=== PATIENT | male | born 1970 | race Caucasian/White ===

== ENCOUNTER → 2017-08-26 08:24 | Outpatient (CLI) | payer OTHER, SELFPAY ==
[2017-08-26 13:00] LABS: Cholesterol 124 mg/dL (200); Glucose 73 mg/dL (74-106); High Density Lipoprotein 40 mg/dL; Triglycerides 102 mg/dL; Very Low Density Lipoprotein 20 mg/dL (5-40)
[2017-08-29 14:08] LABS: Testosterone, Free 8.45 ng/dL (5.00-21.00)
[2017-08-29 14:13] LABS: Testosterone, % Free 1.76 % (1.50-4.20); Testosterone, Total 480 ng/dL (264-916)
== END ==
PROVIDERS: Family Provider Family Medicine; PCP Family Medicine; Visit Provider Family Medicine
DX: Z00.00 Encounter for general adult medical examination without abnormal findings (principal); Z13.220 Encounter for screening for lipoid disorders; R53.83 Other fatigue
CPT/HCPCS: 36415; 80061; 82947; 84402; 84403

== ENCOUNTER → 2018-01-17 11:25 | Outpatient (CLI) | payer OTHER, SELFPAY ==
[2018-01-17 13:02] LABS: Absolute Lymphocyte Count 2.43 X10^3/ul (0.83-4.51); Basophil# 0.09 X10^3/uL; Basophil% 1.1 % (0-1); Eosinophil# 0.18 X10^3/uL; Eosinophils% 2.1 % (0-5); Hematocrit 36.8 % (40-54); Hemoglobin 12.2 g/dl (13.0-16.5); Lymphocyte # 2.43 X10^3/ul (4.0); Lymphocyte % 28.9 % (19-41); Mean Corp Hgb Conc 33.2 g/gl (32-36); Mean Corpuscular Hgb 20.7 pg (27.0-32.0); Mean Corpuscular Volume 62.4 fL (80-94); Mean Platelet Vol. 10.1 fl (6.2-12.0); Monocyte# 0.68 X10^3/uL; Monocyte% 8.1 % (0-10); Neutrophil # 4.96 X10^3/uL (2.7-7.7); Neutrophil % 58.8 % (47-70); Platelet Count 306 K/mm3 (150-450); RBC Distribution Width CV 15.4 % (11.6-14.6); RBC Distribution Width SD 34.3 fl (35.1-43.9); White Blood Count 8.4 K/mm3 (4.4-11.0)
[2018-01-17 13:06] LABS: POSITIVE COUNT NO; POSITIVE DIFFERENTIAL NO; POSITIVE MORPHOLOGY NO
[2018-01-17 13:12] LABS: Anion Gap 6 (5-15); BUN 17 mg/dL (7-18); BUN/Creat Ratio 15.2 RATIO (10-20); Calcium,Total 9.1 mg/dL (8.5-10.1); Chloride 103 mmol/L (98-107); Creatinine, Serum 1.12 mg/dL (0.70-1.30); EST Glomerular Filtration Rate 74 mL/min (>60); Est Glom Filt Rate - Afr Amer 90 mL/min (>60); Glucose 108 mg/dL (74-106); Potassium 3.8 mmol/L (3.5-5.1); Sodium Level 143 mmol/L (136-145)
== END ==
PROVIDERS: Visit Provider Family Medicine
DX: R22.1 Localized swelling, mass and lump, neck (principal)
CPT/HCPCS: 36415; 80048; 85025

== ENCOUNTER → 2018-01-28 10:46 | Outpatient (CLI) | payer OTHER, SELFPAY ==
--- NOTE | 2018-01-28 10:49 | CT_ITS ---
STUDY: CT SOFT TISSUE NECK WITH CONTRAST REASON FOR EXAM: Male, 47 years old. MASS AT RIGHT JAW LINE. RADIATION DOSAGE (If Supplied By Facility): CTDIvol = ( 16.21 ) mGy, DLP = ( 506.11 ) mGycm TECHNIQUE: The patient was scanned in a multi-detector CT scanner. High resolution transaxial imaging was performed following intravenous administration of 75 ml of Isovue 300 contrast material. Sagittal and coronal images were reconstructed. Individualized dose optimization techniques were used for this CT. COMPARISON: None. FINDINGS: Normal bilateral parotid glands. Normal bilateral residency program coordinator spaces. Normal bilateral parapharyngeal spaces. Normal bilateral carotid spaces. Normal bilateral sublingual and submandibular glands and spaces. Normal visualized nasopharynx. Normal retropharyngeal space. Normal perivertebral space. Normal visualized bilateral faucial tonsils. The visualized tongue, tongue base and oropharynx are normal. There are left submandibular masses measuring up to 2.5 and 2.2 cm, likely secondary to enlarged lymph nodes. There is no demonstrated solid or cystic mass lesion. There is no abnormal contrast enhancement. Normal epiglottis, bilateral vallecula and hypopharynx. The pre-epiglottic and paraglottic adipose spaces are normal. Normal visualized bilateral piriform sinuses, aryepiglottic folds, vocal cords, and arytenoid-cricoid articulations. Normal subglottic trachea. Normal bilateral lobes of the thyroid gland. Normal visualized pulmonary apices. Normal visualized paranasal sinuses. Normal visualized cervical spine. CT/Soft Tissue Neck WITH Contrast IMPRESSION: Severe left submental lymphadenopathy. Differential considerations are infectious and neoplastic disease. Electronically Signed: Esperanza Newman MD at 11:15 EDT Tel , Service support ,
== END ==
PROVIDERS: Family Provider Family Medicine; PCP Family Medicine; Visit Provider Family Medicine
DX: R22.1 Localized swelling, mass and lump, neck (principal)
CPT/HCPCS: 70491; Q9967

== ENCOUNTER → 2018-02-04 12:36 | Outpatient (CLI) | payer OTHER, SELFPAY ==
--- NOTE | 2018-02-04 | IMM_PTH ---
PATIENT: WILLIAM WEI LOC: [facility] U#:[id number] AGE/SX: 55/M ROOM: RE02/04/[address]: Dr. Shlomo Kumar MD : 1970 BED: DIS: SPEC #: [id number] RECD: 02/05/18 13:42 STATUS: RAMBO REQ #: [id number] STEPHIE: 02/04/18 00:[address]: Shlomo Kumar DEPT: IMMUNOHISTOCHEMISTRY RECD BY: Kenia Foy ENTERED: 02/05/18 13:44 SP TYPE: IMMUNO OTHR DR: Dr. Dom Rice DO Tissues: Lymph node of neck, NOS Procedures: CD20 (add) CD45 (add) CD5 (add) CD79A (add) CK8 (add) Pankeratin (add) CD3 (initial) PHYSICIAN & INSTITUTION [place] [address] SPECIMEN INFORMATION: Tissue Source: Submental lymph node biopsy Clinical Info: Submental lymph node Specimen Number: [id number] CPT code: 23855, 56574 x6 METHODOLOGY: Deparaffinized sections of prefer/formalin-fixed tissue or PAP/DQ stained slides are incubated with monoclonal/polyclonal antibodies/oligonucleotide probes. Localization is made via biotin free immunoperoxidase method. Appropriate controls are performed and reacted as expected. Results on target cell population are indicated in the following table: RESULTS: ANTIBODY / CLONE RESULT CD3 (PS1) positive CD5 (SP10) positive, focal & weak CD20 (L26) positive CD45 (RP2/18) positive CD79a (11E3) positive CK8 (03xhloX30) negative AE1-3 (AE1/AE3/PCK26) negative These tests were developed and their performance characteristics determined by [facility]. They may not have been cleared or approved by the U.S. Food and Drug Administration. The FDA has determined that such clearance or approval is not necessary. INTERPRETATION: Submental lymph node biopsy: Lymphocytes, polytypic in nature, favor benign. Negative for metastatic carcinoma. RADHA:antonio 02/06/18
--- NOTE | 2018-02-04 10:35 | FLU_PTH ---
PATIENT: WILLIAM WEI LOC: [facility] U#:[id number] AGE/SX: 55/M ROOM: RE02/04/[address]: Dr. Shlomo Kumar MD : 1970 BED: DIS: SPEC #: [id number] RECD: 02/04/18 12:04 STATUS: RAMBO POOJA #: [id number] STEPHIE: 02/04/18 10:[address]: Shlomo Kumar DEPT: CYTOLOGY RECD BY: Luis Morales ENTERED: 02/04/18 13:50 SP TYPE: Fluid OTHR DR: Dr. Dom Rice DO Tissues: Lymph node, NOS Procedures: Pap Stain (control) Special Stain Group II Surgery Specimen Level IV Cell Block Cytospin Fluid HEADER OPERATION: FNA neck node PRE-OP DIAGNOSIS: Submental lymph node TISSUE SUBMITTED: Submental lymph node biopsy DIAGNOSIS CYTOLOGY Submental lymph node, FNA (smears, cytospin and cell block): Polymorphous lymphocytes, polytypic in nature, favor benign. Negative for metastatic carcinoma. See comment. SJ:rg 02/05/18 COMMENT Immunohistochemistry ([id number]) supports the above diagnosis. Clinical correlation and appropriate follow up are necessary, if there is high suspicion of lymphoma, rebiopsy is suggested, if clinically indicated. CYTOLOGY STUDY Slides are reviewed. CYTOLOGY GROSS Received is 40 ml of clear pink fluid labeled with the patient's name and and designated per the requisition as FNA neck note. Submitted for cytology preparation including cell block. 02/04/18 TC:5 CPT: 67424, 98208
== END ==
PROVIDERS: Family Provider Family Medicine; PCP Family Medicine; Visit Provider Otolaryngology
DX: R59.0 Localized enlarged lymph nodes (principal); Z87.891 Personal history of nicotine dependence
CPT/HCPCS: 88108; 88305; 88313; 88341; 88342

== ENCOUNTER 2020-05-27 10:03 | Day surgery (SDC) | payer OTHER, SELFPAY ==
[2020-05-04 08:45] VITALS: BMI 21.7
[2020-05-27] VITALS (7 sets, daily range): BP systolic 100–130; BP diastolic 63–75; PULSE 76–88; RESP 16; TEMP 36.4–36.8; O2SAT 97–100; BMI 20.6
--- NOTE | 2020-05-27 | GASB_PTH ---
PATIENT: WILLIAM WEI LOC: [facility] U#:[id number] AGE/SX: 50/M ROOM: RE05/27/[address]: Dr. Jake Johnson MD : 1970 BED: DIS: 05/27/2020 SPEC #: [id number] RECD: 05/27/20 14:17 STATUS: RAMBO POOJA #: [id number] STEPHIE: 05/27/20 00:[address]: Jake Johnson DEPT: SURGICAL PATHOLOGY RECD BY: Bala Mckay ENTERED: 05/30/20 08:39 SP TYPE: Gastric Bx OTHR DR: Dr. Dom Rice DO Tissues: A - Gastric mucous membrane B - Gastric mucous membrane Procedures: Special Stain Group II Surgery Specimen Level IV Alcian Blue/PAS (control) HEADER OPERATION: Colonoscopy, EGD ([facility] [place]) PRE-OP DIAGNOSIS: RUQ pain; screen for colon cancer TISSUE SUBMITTED: A - Antrum biopsy for H. pylori and path, B - GE junction biopsy MICROSCOPIC DIAGNOSIS A. Gastric antrum, biopsy: Mild chronic gastritis. See comment. B. Gastroesophageal junction, biopsy: Chronic inflammation. Focal goblet cell metaplasia. No evidence of dysplasia. See comment. AM:antonio 06/02/20 COMMENT A. The results of immunohistochemistry for Helicobacter pylori will be reported separately ([id number]). B. Alcian blue/PAS stain with matched control supports the above diagnosis. Immunohistochemistry ([id number]) supports the above diagnosis. MICROSCOPIC DESCRIPTION Slides are reviewed. GROSS DESCRIPTION A - Received in fixative is one container labeled with the patient's name and designated antrum biopsy. The specimen consists of one irregular fragment of light bergman soft tissue that measures 0.7 x 0.2 x 0.1 cm. The specimen is totally submitted in one cassette. B - Received in fixative is one container labeled with the patient's name and designated GE junction. The specimen consists of one irregular fragment of light bergman soft tissue that measures 0.5 x 0.3 x 0.1 cm. The specimen is totally submitted in one cassette. / AM:antonio 05/30/20 TC:3 CPT: 30507 x2, 78915
--- NOTE | 2020-05-27 03:49 | HP_ITS ---
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 Is patient in pain?: No Allergies No Known Allergies Allergy (Verified 05/04/20 08:45) Medications Naproxen [Naprosyn] 500 mg PO BID PRN #20 tab 02/26/16 [Rx Confirmed 05/04/20] melatonin 10 mg capsule 30 mg PO HS PRN cap 05/04/20 [History Confirmed 05/04/20] multivitamin 1 tab PO DAILY 05/04/20 [History Confirmed 05/04/20] triamcinolone acetonide 0.5 % topical cream 1 applic TOPICAL g 05/04/20 [History Confirmed 05/04/20] PFSH Medical History Back pain (Acute) Headache (Acute) Microcytic anemia (Acute) Restless leg (Acute) Varicose vein of leg (Acute) COPD (chronic obstructive pulmonary disease) (Chronic) Surgical History (Updated 05/04/20 @ 08:44 by Freya Hernández) History of lymph node biopsy (Acute) History of right inguinal hernia repair (Acute) History of tooth extraction (Acute) Family History (Updated 05/04/20 @ 08:45 by Freya Hernández) Father Hypertension Ulcer Cancer skin Grandfather Colon cancer Social History (Updated 05/04/20 @ 13:[address] Jake Johnson MD) Smoking Status: Heavy Smoker (>10/day) HPI HPI HPI: WILLIAM WEI, is a 49 M who presents to the office today for HPI HPI Surgical H&P: Yes HPI: WILLIAM WEI, is a 49 M who presents to the office today for Abdominal pain and need for colonoscopy. Patient is having right abdominal pain. It does not coincide with meals. He reports that he has never had ulcers in the past. He also reports a history of colon cancer in his grandfather and he has never had a screening colonoscopy. ROS General General: Yes weight change and fatigue; no appetite, colon cancer, breast cancer or weakness HEENT HEENT: Yes eye injury; no difficulty swallowing, eye surgery, swollen glands or hoarseness Endo Endocrine: No thyroid disease, diabetes mellitus, thyroid cancer, Hair loss, heat intolerance or cold intolerance Musc Musculoskeletal: Yes back problems; no arthritis, rheumatoid arthritis, gout or joint pain Cardio Cardiovascular: No murmur, pacemaker, heart disease, atrial fibrillation, high blood pressure, heart attack, heart stent, palpitations, shortness of breat with exertion or chest pain Psych Psychiatric: No depression, anxiety or hearing voices Resp Respiratory: No shortness of breath, No sleep apnea, No cough, No COPD, No asthma, No emphysema, No wheezing Gastro Gastrointestinal: Yes abdominal pain, No nausea or vomiting, Yes diarrhea, Yes constipation, No blood in stool, Yes acid reflux, No hemorrhoids, No ulcers, No gallbladder problem, No black,tarry stools Joe Hematologic: No blood thinners, No blood disorders, No bleeding, No anemia, No blood clots Neuro Neurologic: No weakness Exam Const General: cooperative Orientation: alert, oriented x3 Resp Effort & Inspection: normal respiratory effort Auscultation: clear to auscultation bilaterally Cardio Rate: regular rate Rhythm: regular rhythm Heart Sounds: no murmurs GI Inspection: non-distended Palpation: soft, nontender Assessment & Plan Problems 1. RUQ pain R10.11 2. Screen for colon cancer Z12.11 Plan The patient is having upper quadrant pain and may have peptic ulcer disease. I recommend EGD to evaluate. I also recommend the patient have a screening colonoscopy. If the EGD is normal I will order an ultrasound of his gallbladder. I explained endoscopy in detail to the patient. I explained the risks including but not limited to stroke or heart attack with anesthesia, perforation of the GI tract, bleeding, infection. I explained that any of these could necessitate further emergency surgery. The patient understands and all questions were answered sufficiently. The patient wishes to proceed with procedure. We discussed the current risks associated with COVID-19. While it is understood that there is a community spread of COVID-19, the risk of [facility] is very low; however, the risk cannot be completely mitigated because of the community spread of the disease. We discussed in detail the risk of exposure to and/or potential harm posed by the COVID-19 virus with having a surgery/procedure at this time versus the risk of delaying the surgery/procedure. It is not possible to know either the risk of delaying the surgery or procedure or chance of getting an infection with perfect accuracy, but a joint decision was made to proceed at this time with the scheduled surgery/procedure as indicated on the consent form. Patient was notified that we will need to comply with any screening or testing [facility] wishes to perform or that surgery may be delayed for any positive results. Jake Johnson MD Pager: [facility] [address] [place] [address], [address] [place] [address] Office: Orders Orders: Colonoscopy Today EGD Today Coding Level of Care Code Off vis,new,level 3 Diagnoses RUQ pain R10.11 Screen for colon cancer Z12.11 I have re-examined the patient. There are no clinical changes since date of exam.
[2020-05-27] MEDS: Lactated Ringers 1,000 ML 100 ML IV (10:41)
--- NOTE | 2020-05-27 11:00 | IMM_PTH ---
PATIENT: WILLIAM WEI LOC: [facility] U#:[id number] AGE/SX: 50/M ROOM: RE05/27/[address]: Dr. Jake Johnson MD : 1970 BED: DIS: 05/27/2020 SPEC #: [id number] RECD: 05/30/20 09:18 STATUS: RAMBO POOJA #: [id number] STEPHIE: 05/27/20 11:[address]: Jake Johnson DEPT: IMMUNOHISTOCHEMISTRY RECD BY: Kenia Foy ENTERED: 05/30/20 09:19 SP TYPE: IMMUNO OTHR DR: Dr. Dom Rice DO Tissues: A - Stomach, NOS B - Esophageal mucous membrane Procedures: H Pylori (initial) P53 (initial) KI-67 (add) PHYSICIAN & INSTITUTION [place] [address] SPECIMEN INFORMATION: Tissue Source: A - Antrum biopsy, B - GE junction biopsy Clinical Info: RUQ pain, colon cancer screen Specimen Number: [id number] A & B CPT code: 05414 x2, 11116 METHODOLOGY: Deparaffinized sections of prefer/formalin-fixed tissue or PAP/DQ stained slides are incubated with monoclonal/polyclonal antibodies/oligonucleotide probes. Localization is made via biotin free immunoperoxidase method. Appropriate controls are performed and reacted as expected. Results on target cell population are indicated in the following table: RESULTS: ANTIBODY / CLONE RESULT Block A H Pylori (polyclonal) negative Block B P53 (DO-7) negative Ki-67 (30-9) negative These tests were developed and their performance characteristics determined by [facility]. They may not have been cleared or approved by the U.S. Food and Drug Administration. The FDA has determined that such clearance or approval is not necessary. The above immunohistochemical/dualISH markers are ordered and reviewed by the Pathologist. INTERPRETATION: A. Antrum, biopsy: Negative for Helicobacter pylori organisms. B. GE junction, biopsy: No evidence of dysplasia. AM:antonio 06/02/20
[2020-05-27] MEDS: BENZOCAINE/MENTHOL 1 LOZENGE 2 LOZENGE MUCOUS MEM (12:26)
--- NOTE | 2020-05-27 12:56 | OP.EGD_ITS ---
Patient Name: Narciso Hammonds Procedure Date: 05/27/2020 11:07 AM Date of : 1970 Age: 50 Procedure: Upper GI endoscopy Indications: Abdominal pain in the right upper quadrant Providers: Jake Johnson MD Referring MD: Jake Johnson MD Medicines: Monitored Anesthesia Care Patient Profile: This is a 50 year old male. Refer to note in patient chart for documentation of history and physical. Complications: No immediate complications. Procedure: Pre-Anesthesia Assessment: - Prior to the procedure, a History and Physical was performed, and patient medications and allergies were reviewed. The patient's tolerance of previous anesthesia was also reviewed. The risks and benefits of the procedure and the sedation options and risks were discussed with the patient. All questions were answered, and informed consent was obtained. Prior Anticoagulants: The patient has taken no previous anticoagulant or antiplatelet agents. After reviewing the risks and benefits, the patient was deemed in satisfactory condition to undergo the procedure. After obtaining informed consent, the endoscope was passed under direct vision. Throughout the procedure, the patient's blood pressure, pulse, and oxygen saturations were monitored continuously. The Endoscope was introduced through the mouth, and advanced to the third part of duodenum. The upper GI endoscopy was accomplished without difficulty. The patient tolerated the procedure well. Scope In: 11:15:58 AM Scope Out: 11:21:28 AM Total Procedure Duration Time 0 hours 5 minutes 30 seconds Findings: The stomach was normal. The examined duodenum was normal. Esophagitis with no bleeding was found. Biopsies were taken with a cold forceps for histology. Impression: - Normal stomach. - Normal examined duodenum. - Reflux esophagitis. Biopsied. Recommendation: - Await pathology results. - Discharge patient to home. - Resume previous diet. - Continue present medications. Procedure Code(s): --- Professional --- 25060, Esophagogastroduodenoscopy, flexible, transoral; with biopsy, single or multiple Diagnosis Code(s): --- Professional --- K21.0, Gastro-esophageal reflux disease with esophagitis R10.11, Right upper quadrant pain CPT copyright 2017 [employer]. All rights reserved. The codes documented in this report are preliminary and upon lining parts sewer review may be revised to meet current compliance requirements. Jake Johnson MD 05/27/2020 12:55:53 PM This report has been signed electronically. Number of Addenda: 0 Note Initiated On: 05/27/2020 11:07 AM
--- NOTE | 2020-05-27 12:56 | OP.CCLET_ITS ---
05/27/2020 Dom Rice [address] [place] [address] Re : Upper GI endoscopy procedure for Narciso Hammonds Dear Dr. Rice This procedure was performed on Wednesday, May 27, 2020. My impressions and recommendations are as follows: Impressions : - Normal stomach. - Normal examined duodenum. - Reflux esophagitis. Biopsied. Recommendations : - Await pathology results. - Discharge patient to home. - Resume previous diet. - Continue present medications. My findings are described in the full procedure note, which is enclosed. If I can be of further assistance, please feel free to contact me at Doctor phone number(s): , Work: . Sincerely, Jake Johnson MD 05/27/2020 12:55:53 PM This report has been signed electronically.
--- NOTE | 2020-05-27 12:57 | OP.CCLET_ITS ---
05/27/2020 Dom Rice [address] [place] [address] Re : Colonoscopy procedure for Narciso Hammonds Dear Dr. Rice This procedure was performed on Wednesday, May 27, 2020. My impressions and recommendations are as follows: Impressions : - The entire examined colon is normal on direct and retroflexion views. - No specimens collected. Recommendations : - Discharge patient to home. - Resume previous diet. - Continue present medications. - Repeat colonoscopy in 10 years for screening purposes. My findings are described in the full procedure note, which is enclosed. If I can be of further assistance, please feel free to contact me at Doctor phone number(s): , Work: . Sincerely, Jake Johnson MD 05/27/2020 12:56:50 PM This report has been signed electronically.
--- NOTE | 2020-05-27 12:57 | OP.COLON_ITS ---
Patient Name: Narciso Hammonds Procedure Date: 05/27/2020 11:23 AM Date of : 1970 Age: 50 Procedure: Colonoscopy Indications: Screening for colorectal malignant neoplasm Providers: Jake Johnson MD Referring MD: Jake Johnson MD Medicines: Monitored Anesthesia Care Patient Profile: This is a 50 year old male. Refer to note in patient chart for documentation of history and physical. Last Colonoscopy: none. The patient's first colonoscopy is today. Complications: No immediate complications. Procedure: Pre-Anesthesia Assessment: - Prior to the procedure, a History and Physical was performed, and patient medications and allergies were reviewed. The patient's tolerance of previous anesthesia was also reviewed. The risks and benefits of the procedure and the sedation options and risks were discussed with the patient. All questions were answered, and informed consent was obtained. Prior Anticoagulants: The patient has taken no previous anticoagulant or antiplatelet agents. After reviewing the risks and benefits, the patient was deemed in satisfactory condition to undergo the procedure. - Prior to the procedure, a History and Physical was performed, and patient medications and allergies were reviewed. The patient's tolerance of previous anesthesia was also reviewed. The risks and benefits of the procedure and the sedation options and risks were discussed with the patient. All questions were answered, and informed consent was obtained. Prior Anticoagulants: The patient has taken no previous anticoagulant or antiplatelet agents. After reviewing the risks and benefits, the patient was deemed in satisfactory condition to undergo the procedure. After I obtained informed consent, the scope was passed under direct vision. Throughout the procedure, the patient's blood pressure, pulse, and oxygen saturations were monitored continuously. The pediatric colonoscope was introduced through the anus and advanced to the cecum, identified by appendiceal orifice and ileocecal valve. The colonoscopy was performed without difficulty. The patient tolerated the procedure well. The quality of the bowel preparation was good. Scope In: 11:23:47 AM Scope Withdrawal Time 0 hours 4 minutes 46 seconds Scope Out: 11:42:48 AM Total Procedure Duration Time 0 hours 19 minutes 1 second Findings: The entire examined colon appeared normal on direct and retroflexion views. Impression: - The entire examined colon is normal on direct and retroflexion views. - No specimens collected. Recommendation: - Discharge patient to home. - Resume previous diet. - Continue present medications. - Repeat colonoscopy in 10 years for screening purposes. Procedure Code(s): --- Professional --- 54089, Colonoscopy, flexible; diagnostic, including collection of specimen(s) by brushing or washing, when performed (separate procedure) Diagnosis Code(s): --- Professional --- Z12.11, Encounter for screening for malignant neoplasm of colon CPT copyright 2017 [employer]. All rights reserved. The codes documented in this report are preliminary and upon bladder tier review may be revised to meet current compliance requirements. Jake Johnson MD 05/27/2020 12:56:50 PM This report has been signed electronically. Number of Addenda: 0 Note Initiated On: 05/27/2020 11:23 AM
== END 2020-05-27 13:32 | disposition home or self-care (01) ==
LOC: EN 10:05 → AC 10:06
PROVIDERS: PCP Family Medicine; Referring Provider Surgery; Visit Provider Surgery
PROC: 0DJD8ZZ Inspection of Lower Intestinal Tract, Via Natural or Artificial Opening Endoscopic (ICD-10-PCS; CPT 45378; principal; 2020-05-27 10:55)
DX: Z12.11 Encounter for screening for malignant neoplasm of colon (principal); K22.70 Barrett's esophagus without dysplasia; K29.50 Unspecified chronic gastritis without bleeding; K21.00 Gastro-esophageal reflux disease with esophagitis, without bleeding; R10.11 Right upper quadrant pain; J44.9 Chronic obstructive pulmonary disease, unspecified; F17.200 Nicotine dependence, unspecified, uncomplicated; Z79.1 Long term (current) use of non-steroidal anti-inflammatories (NSAID); Z20.828 Contact with and (suspected) exposure to other viral communicable diseases
CPT/HCPCS: 43239; 45378; 87426; 88305; 88313; 88341; 88342; C9803; J7120; J1610; J2405

== ENCOUNTER → 2020-08-10 08:51 | Outpatient (CLI) | payer OTHER, SELFPAY ==
[2020-05-27 10:15] VITALS: BMI 20.6
--- NOTE | 2020-08-10 08:55 | RAD_ITS ---
STUDY: X-RAY - PELVIS AND LEFT HIP REASON FOR EXAM: Left hip pain, no specific injury. TECHNIQUE: 2 views of the pelvis and hip. COMPARISON: None. FINDINGS: There are pelvic phleboliths. Normal bilateral iliac wings, sacroiliac joints and visualized sacrum. Normal bilateral superior and inferior pubic rami. Normal pubic symphysis. Normal bilateral ischial tuberosities. Normal visualized femoral head. Normal acetabulum. Normal hip joint. RAD/HIP, UNI W/ Pelvis 2-3 Views IMPRESSION: Normal x-ray examination of the pelvis and left hip. Electronically Signed: Elvin Morales MD at 9:33 EST Tel , Service support ,
== END ==
LOC: MTRAD 08:52
PROVIDERS: PCP Family Medicine; Referring Provider Family Medicine; Visit Provider Family Medicine
DX: M25.552 Pain in left hip (principal)
CPT/HCPCS: 73502

== ENCOUNTER → 2020-08-27 08:42 | Outpatient (CLI) | payer OTHER, SELFPAY ==
[2020-05-27 10:15] VITALS: BMI 20.6
--- NOTE | 2020-08-27 09:15 | MRI_ITS ---
STUDY: MRI LEFT HIP REASON FOR EXAM: Male, 50 years old. Episodes of severe left groin/hip pain,question labral issue TECHNIQUE: Standardized fat and water weighted pulse sequences were obtained in all 3 orthogonal planes. COMPARISON: None. FINDINGS: Normal hip joint without articular joint space narrowing. Normal acetabulum. Tear of the superior acetabular labrum, series 4 image 18/30. Normal femoral head. Normal femoral neck and intratrochanteric region. Normal gluteus minimus, medius and iliopsoas tendons and distal insertions. There is no trochanteric, iliopsoas or iliopectineal bursitis. Normal superior and inferior pubic rami. Normal pubic symphysis. Normal ischial tuberosity. Normal origin of the hamstring tendons. Normal visualized iliac wing. There is marrow edema of the left inferior sacrum, series 5 image 13/30. Normal visualized soft tissue structures of the pelvis. MRI/Lower Ext Joint Only (Routine) IMPRESSION: Stress injury of the left sacrum. No hip fracture or avascular necrosis. Tear of the acetabular labrum. Electronically Signed: Frank Scales MD at 13:45 EST , Service support ,
--- NOTE | 2020-08-27 09:15 | RAD_ITS ---
STUDY: X-RAY - ORBITS REASON FOR EXAM: Male, 50 years old. PRE MRI CLEARANCE, HX OF METAL REMOVED FROM LEFT EYE IN THE LAST 5 YEARS TECHNIQUE: 2 view(s) of the orbits were obtained. COMPARISON: None. FINDINGS: No demonstrated radiopaque metallic foreign object. Normal visualized facial bones. Normal paranasal sinuses. The soft tissue structures are unremarkable. RAD/Orbits for Foreign Body IMPRESSION: No demonstrated metallic orbital foreign body. The patient is cleared for an MRI examination. Electronically Signed: Blayne Curtis MD at 9:21 EST Tel , Service support ,
== END ==
LOC: MRI 08:43
PROVIDERS: PCP Family Medicine; Referring Provider Family Medicine; Visit Provider Family Medicine
DX: M25.552 Pain in left hip (principal)
CPT/HCPCS: 70030; 73721

== ENCOUNTER 2020-11-24 09:30 | Outpatient (RCR) | payer OTHER, SELFPAY ==
[2020-05-27 10:15] VITALS: BMI 20.6
--- NOTE | 2020-10-27 10:46 | HP.PTEVAL ---
Patient's Visit Information WILLIAM WEI is a 50 year old M referred to Physical Therapy by Dr. Sung Ellis MD with a diagnosis of OTHER ARTICULAR CARTILAGE DISORDER HIP SPECIFIED DISORDERS LEFT HIP. Date of Evaluation: 10/27/20 Physical Therapist: Edgar Dyer, PT, Cert MDT, OCS - Visit Plan Frequency: 1-2x /Week Duration: 4 Weeks Plan: PT INTERVENTIONS ROM LEFT HIP, STRENGTH HIP/KNEE,FUNCTIONAL STRENGTHENING,BIKE - Subjective This 50 y/o male presents to physical therapy with left labral tear. Patient injured left hip work on ground crossing legs lean and felt pop before Delfino. Symptoms are random and intermittent. Aggravating factors sitting,flexion in sitting and pressure and turning. Initially,seen family DR next day then had x-rays and MRI at hospital ,then referred to Specialist at [facility] . Dr discussed about surgery and wanted to PT . Will need to see PT before any surgery. MEDS better with naproxyn. Denies parathesia/tingling. Location anterior hip and groin. Patient is able to squat/kneeling/stairs.Sleeping okay. Patient pain impairs function and job demands. SOCAIL: . VOCATION: [employer] - Pain Left Hip Pain Intensity (Out of 10): 2 Pain Intensity Range: N/A - Objective POSTURE : WFL. NEURO: denies parathesia/tingling. GAIT: reciprocal normal gabe. PALPATION: unremarkable. PROM: right hip flexion 100 degrees,ER 50 DEGREES ,IR 40 degrees pain ,hip abduction 45 degrees. MMT: hip flexion 4-/5,abduction 4-/5,quads/hams 4/5,IR/ER 4-/5 PAIN - Special Tests L Hip MARTIN - Intraarticular Pathology: Positive L Hip FADDIR - Labrum: Positive L Hip Impingement Provocation - Labrum: Positive - Goals Goal 1:: I with HEP Goal Time Frame: 4-6 Weeks Goal 2:: Decrease pain left hip by 50% or > to improve function with job and ADLS' Goal Time Frame: 4-6 Weeks Goal 3:: Patient to increase ROM to WFL with less pain to improve function. Goal Time Frame: 4-6 Weeks Goal 4:: Patient increase left hip by 4/5 to improve function with gait Goal Time Frame: 4-6 Weeks Goal 5:: Patient to improve LFES score by 5 points or> to improve function Goal Time Frame: 4-6 Weeks - Rehabilitation Potential Physical Therapy Diagnosis: Patient has left labral tear with pain ,decrease ROM,strength impairs function and job demands thus benefit from skill PT Rehabilitation Potential: Good - Anticipated Interventions Patient/Client Instruction: Educate patient on: Condition, Plan of Care For the Purpose of:: To decrease pain, To increase ROM, To improve muscle performance and motor function, To improve ability to perform ADL's, To increase tolerance to activity/condition/position, To improve performance and independence with ADL's, To improve ability of physical actions for home/community/work/leisure, To improve health of tissue, To decrease soft tissue restriction, To increase flexibility/ROM, To reduce risk of recurrence Therapeutic Exercise to Include: Strength training, Balance training, Flexibilty training, Passive ROM, Active ROM Comment: HIP/KNEE For the Purpose of:: To decrease pain, To decrease swelling/inflammation, To increase oxygenation perfusion, To improve ability to perform ADL's, To increase tolerance to activity/condition/position, To improve performance and independence with ADL's, To decrease level of supervision to perform tasks, To improve ability of physical actions for home/community/work/leisure, To improve gait and locomotor functions, To improve health of tissue, To decrease soft tissue restriction, To increase flexibility/ROM, To reduce risk of recurrence Thank you for the opportunity to evaluate your patient. For Medicare and Medicare HMO plans, please review the plan of care and approve it. It will need to be FAXED BACK to us at [phone] for Medicare purposes. For Medicare only, by signing this I certify the plan of care. Please let me know if there are questions or concerns regarding this plan of care. Physician Signature: Date:
--- NOTE | 2021-03-29 09:51 | HP.PTDCSUM ---
It has been my pleasure to treat WILLIAM WEI referred by Dr. Sung Ellis MD, with the diagnosis of OTHER ARTICULAR CARTILAGE DISORDER HIP SPECIFIED DISORDERS LEFT HIP for a total of 5 visit(s). Discharge Date: Please see the following information for a summary of their discharge status. Subjective: Plan to RTD Left Hip Pain Intensity (Out of 10): 0 % Improvement: 75 Objective/Function: Patient was able to complete without incidence. He had no increase in s/s throughout session. Appropritae fatiue level. GOOD STRENGTH HIP. ROM WFL MOST LIMITED IR Goal 1:: I with HEP Goal 2:: Decrease pain left hip by 50% or > to improve function with job and ADLS' Goal 3:: Patient to increase ROM to WFL with less pain to improve function. Goal 4:: Patient increase left hip by 4/5 to improve function with gait Goal 5:: Patient to improve LFES score by 5 points or> to improve function Plan: RTD If there are questions or concerns regarding this patient's physical therapy, please feel free to call me at [phone]. Thank you for the referral of this patient. Sincerely, Edgar Dyer, PT, Cert MDT, OCS Balance/Gait/Functional tests - Balance/Special Test Scores Lower Extremity Functional Score: 73
== END 2020-11-24 19:00 | disposition home or self-care (01) ==
LOC: PT 09:30
PROVIDERS: PCP Family Medicine; Referring Provider Orthopaedic Surgery Sports Medicine; Visit Provider Orthopaedic Surgery Sports Medicine
DX: M24.152 Other articular cartilage disorders, left hip (principal); M25.852 Other specified joint disorders, left hip
CPT/HCPCS: 97110; 97162

== ENCOUNTER 2021-10-18 10:00 | Outpatient (RCR) | payer OTHER, SELFPAY ==
--- NOTE | 2021-06-20 13:26 | HP.PTEVAL ---
Patient's Visit Information WILLIAM WEI is a 51 year old M referred to Physical Therapy by Dr. Sung Ellis MD with a diagnosis of OTHER ARTICULAR CARTLIDGE DISORDER LEFT HIP ,OTHER SPECIFIED JOINT DISORDER. Date of Evaluation: 06/20/21 Physical Therapist: Edgar Dyer, PT, Cert MDT, OCS - Visit Plan Frequency: 2x /Week Duration: 12 weeks Plan: S/P LEFT HIP ARTHROSCOPIC LABRAL REPAIR WITH CAPSULAR CLOSER OM 06/01/21 ..3WEEKS ON 06/22/21. PT INTERVENTIONS SEE PROTOCAL WITH ROM HIP ,WB PROGRESSION WITH GAIT , FLEXABILITY, CORE EX'S ,MANUAL THERAPY AND VASO/CP NEEDED - Subjective This 51 y/o male presents to physical therapy with left hip labral repair on 06/01/[address] Ellis at [facility] . Patient was d/c DOS with NWB with crutches. Recently seen PA on 06/14/21 recommended PT NWB LLE and no active abduction. Patient continuous to have edema in leg. Patient has paresthesia/tingling in calf of foot. Patient did slip and put weight caused pain with tingling. Patient has had left hip pain ~ one year had MRI showed labral tear. Tried PT helped some then pain became worse thus opt to have surgery. Patient has limitations with ADLS' ,housework tasks and unable to RTW . Pain affects sleeping.Plan to RTW tentative August 30. Patient is able to Drive. MEDS stop Percocet and muscle relaxer. Patient taking naproxen. Patient surgery has caused limitations to RTW and work. VOCATION: [employer] SOCAIL: - Pain Left Hip Pain Intensity (Out of 10): 3 Pain Intensity Range: 10 - Objective POSTURE: WFL. GAIT: Ambulates with crutches NWB LLE. INSCION: well incision few sterry strips. EDEMA: 1+ LLE. PROM: knee flexion 95 degrees, abduction 0 degrees, hip flexion 45 degrees. MMT: quads/hams 3/5,hip flexion 2-/5,hip abduction 2-/5,ankle 4/5 - Balance/Special Test Scores Lower Extremity Functional Score: 15 - Goals Goal 1:: I with protocol with labral repair Goal Time Frame: 8-12 Weeks Goal 2:: Patient to normalize gait pattern Goal Time Frame: 8-12 Weeks Goal 3:: Patient to improve ROM of left hip to WFL to return to prior level of function Goal Time Frame: 8-12 Weeks Goal 4:: Patient improve strength of left hip abd/flexion 4-/5 and quads/hams 5/5 to improve function Goal Time Frame: 8-12 Weeks Goal 5:: Patient return to work with min to no limitations. Goal Time Frame: 8-12 Weeks Goal 6:: Patient to improve LFES score by 10-15 points to improve function and QIL Goal Time Frame: 8-12 Weeks - Rehabilitation Potential Physical Therapy Diagnosis: This patient underwent s/p left hip arthroscopic labral repair with capsular closure ON 06/01/21 with pain ,swelling hip ,decrease ROM and strength, impaired gait and function and RTW thus benefit from skilled PT Rehabilitation Potential: Good - Anticipated Interventions Patient/Client Instruction: Educate patient on: Condition, Plan of Care For the Purpose of:: To decrease pain, To increase ROM, To improve muscle performance and motor function, To improve ability to perform ADL's, To increase tolerance to activity/condition/position, To improve performance and independence with ADL's, To decrease level of supervision to perform tasks, To improve gait and locomotor functions, To improve health of tissue, To decrease soft tissue restriction, To increase flexibility/ROM, To improve endurance, To improve safety with gait Therapeutic Exercise to Include: Strength training, Endurance training, Flexibilty training, Gait and locomotor training, Passive ROM, Active ROM, Dynamic Lumbar Stabilization For the Purpose of:: To decrease pain, To increase ROM, To increase tolerance to activity/condition/position, To improve ability of physical actions for home/community/work/leisure, To improve gait and locomotor functions, To improve health of tissue, To decrease soft tissue restriction, To increase flexibility/ROM, To improve balance, To improve safety with gait Manual Therapy Techniques to Include: Passive ROM Comment: hip For the Purpose of:: To decrease pain, To increase ROM, To improve nutrient delivery to tissue, To increase oxygenation perfusion, To improve health of tissue, To decrease soft tissue restriction TENS: Yes IF ES: Yes Cryotherapy (ice pack, ice massage): Yes Thermo therapy (hot pack): Yes Vasopneumatic device: Yes For the Purpose of:: To decrease pain, To decrease swelling/inflammation, To increase ROM, To improve health of tissue, To decrease soft tissue restriction Thank you for the opportunity to evaluate your patient. For Medicare and Medicare HMO plans, please review the plan of care and approve it. It will need to be FAXED BACK to us at [phone] for Medicare purposes. For Medicare only, by signing this I certify the plan of care. Please let me know if there are questions or concerns regarding this plan of care. Physician Signature: Date:
== END 2021-10-18 19:00 | disposition home or self-care (01) ==
LOC: PT 10:00
PROVIDERS: PCP Family Medicine; Referring Provider Orthopaedic Surgery Sports Medicine; Visit Provider Orthopaedic Surgery Sports Medicine
DX: M24.152 Other articular cartilage disorders, left hip (principal); M25.852 Other specified joint disorders, left hip
CPT/HCPCS: 97014; 97110; 97161; 97530; G0283

== ENCOUNTER 2022-05-28 10:00 | Outpatient (RCR) | payer OTHER, SELFPAY ==
--- NOTE | 2022-01-23 12:35 | HP.PTEVAL ---
Patient's Visit Information WILLIAM WEI is a 51 year old M referred to Physical Therapy by Dr. Sung Ellis MD with a diagnosis of TENDONITIS INVOLVING LEFT HIP ABDUCTORS. Date of Evaluation: 01/23/22 Physical Therapist: Edgar Dyer, PT, Cert MDT, OCS - Visit Plan Frequency: 1-2x /Week Duration: 4 Weeks Plan: SEE PROTOCAL GUIDLINES GLUT MEDIUS TEAR. PT INTERVTIONS MODALTIES FOR PAIN ,MANUAL THERAPY ,GRADE ROM HIP,STRENGTENING AND FUNCTIONAL STRENGTHENING - Subjective Patient 51 y/o male presents to physical therapy with tendonitis left hip abductors . Patient had femoral labral repair May 2021 . Patient went through PT for labral repair . Patient developed fare-up seen DR Ellis . Patient had US lateral hip which showed calcification deposit trochanter and showed partial tear gluteus Medius tear. Plan to do PPR and last resort would be surgery. Patient voiced frustrated . Aggravating factors extended sitting, twisting. Patient has had 2 flare ups .Alleviating Mobic, ice. Denies paresthesia/tingling . Patient able to sleep. Patient concern if PT will help and doesn't want to get worse. Also ,does not whether to do surgery and/or PPR. SOCIAL: . VOCATION: [employer]. Patient symptoms affects QOL ,function ,marvin demands and ADLS' - Pain Left Hip Pain Intensity (Out of 10): 2 Pain Intensity Range: 10 - Objective POSTURE: mild forward posture. GAIT: reciprocal pattern mild decrease stance time LLE. PALAPATION: tender greater trochanter glut Medius. NEURO: denies paresthesia/tingling ,reflexes L3-4,L4-5,L5-S1 1/3. MMT (peak force ): quads 36.7 ,hamstrings 38.7,hip flexion 28.9 ,ankle 4/5 ,hip abd not tested. AROM: knee flexion 0-130 supine knee flexion ,hip flexion 120 degrees ,IR/ER WFL ,hip abduction 30 degrees - Balance/Special Test Scores Lower Extremity Functional Score: 35 - Goals Goal 1:: Provide HEP to ensure min pain Goal Time Frame: 4-6 Weeks Goal 2:: Patient to demonstrate 50% improvement with improve gait/function with less pain. Goal Time Frame: 4-6 Weeks Goal 3:: Patient to improve quality gait with improved stance time 75% of the time Goal Time Frame: 4-6 Weeks Goal 4:: Patient improve LFES score by 5 points to improve function and gait. Goal Time Frame: 4-6 Weeks - Rehabilitation Potential Physical Therapy Diagnosis: This patient has h/o femoral labral repair May 2021 developed flare up lateral hip. Patient c/o lateral hip pain had US showed calcification deposit causing glut Medius partial tear. MD gave options PPR and surgery to repair to glut Medius. Patient left hip surgery looks with ROM and but painful lateral hip with weakness with gait and extended sitting Rehabilitation Potential: Fair - Anticipated Interventions Patient/Client Instruction: Educate patient on: Condition, Plan of Care For the Purpose of:: To decrease pain, To decrease swelling/inflammation, To increase ROM, To increase tolerance to activity/condition/position, To improve ability of physical actions for home/community/work/leisure, To improve health of tissue, To decrease soft tissue restriction, To increase flexibility/ROM, To improve endurance, To improve balance, To prevent re-injury Therapeutic Exercise to Include: Strength training, Endurance training, Balance training, Active ROM Comment: QUADS/HAMSTRINGS /HIP For the Purpose of:: To decrease pain, To increase ROM, To improve muscle performance and motor function, To increase tolerance to activity/condition/position, To improve ability of physical actions for home/community/work/leisure, To improve health of tissue, To decrease soft tissue restriction, To increase flexibility/ROM, To improve endurance, To improve balance, To prevent re-injury, To improve tolerance to ADL's Manual Therapy Techniques to Include: Soft tissue mobilization For the Purpose of:: To decrease pain, To improve nutrient delivery to tissue, To increase oxygenation perfusion, To improve health of tissue, To decrease soft tissue restriction TENS: Yes IF ES: Yes Cryotherapy (ice pack, ice massage): Yes Thermo therapy (hot pack): Yes Ultrasound (thermal/non thermal): Yes For the Purpose of:: To decrease pain, To improve nutrient delivery to tissue, To increase oxygenation perfusion, To improve health of tissue, To decrease soft tissue restriction Thank you for the opportunity to evaluate your patient. For Medicare and Medicare HMO plans, please review the plan of care and approve it. It will need to be FAXED BACK to us at [phone] for Medicare purposes. For Medicare only, by signing this I certify the plan of care. Please let me know if there are questions or concerns regarding this plan of care. Physician Signature: Date:
--- NOTE | 2022-03-14 09:55 | HP.PTREVAL_ITS ---
Dr. Sung Ellis MD, It has been my pleasure to treat WILLIAM WEI over the last 4 visits for TENDONITIS INVOLVING LEFT HIP ABDUCTORS. Please see the progress note below for an update on the physical therapy plan of care! Subjective: Left groin is warm. Patient has developed new diagnosis of tore. glut medius trying to avoid surgery. pain worse with twisting, turning unable to do full squat. and kneeling Objective/Function: POSTURE: mild forward posture. GAIT: reciprocal pattern. PALAPTION: tender greater trochanter. NEURO: denies paresthesia. PROM: right hip flexion 120 degrees, IR 15 degrees pain, ER 30 degrees. MMT: (peak force)- quads37,2,hamstrings 38.4,hip flexion 28.9, hip abduction 10.1 pain Plan Plan: REQESTING 8 MORE VISITS. SEE PROTOCAL GUIDLINES GLUT MEDIUS TEAR. PT INTERVTIONS MODALTIES FOR PAIN ,MANUAL THERAPY ,GRADE ROM HIP,STRENGTENING AND FUNCTIONAL STRENGTHENING Balance/Gait/Functional tests - Balance/Special Test Scores Lower Extremity Functional Score: 35 Goals Goal 1:: Provide HEP to ensure min pain Goal Time Frame: 4-6 Weeks Goal 2:: Patient to demonstrate 50% improvement with improve gait/function with less pain. Goal Time Frame: 4-6 Weeks Goal 3:: Patient to improve quality gait with improved stance time 75% of the t barry Goal Time Frame: 4-6 Weeks Goal 4:: Patient improve LFES score by 5 points to improve function and gait. Goal Time Frame: 4-6 Weeks Anticipated Interventions Patient/Client Instruction: Educate patient on: Condition, Plan of Care For the Purpose of:: To decrease pain, To decrease swelling/inflammation, To increase ROM, To increase tolerance to activity/condition/position, To improve ability of physical actions for home/community/work/leisure, To improve health of tissue, To decrease soft tissue restriction, To increase flexibility/ROM, To improve endurance, To improve balance, To prevent re-injury Therapeutic Exercise to Include: Strength training, Endurance training, Balance training, Active ROM Comment: QUADS/HAMSTRINGS /HIP For the Purpose of:: To decrease pain, To increase ROM, To improve muscle performance and motor function, To increase tolerance to activity/condition/position, To improve ability of physical actions for home/community/work/leisure, To improve health of tissue, To decrease soft tissue restriction, To increase flexibility/ROM, To improve endurance, To improve balance, To prevent re-injury, To improve tolerance to ADL's Manual Therapy Techniques to Include: Soft tissue mobilization For the Purpose of:: To decrease pain, To improve nutrient delivery to tissue, To increase oxygenation perfusion, To improve health of tissue, To decrease soft tissue restriction TENS: Yes IF ES: Yes Cryotherapy (ice pack, ice massage): Yes Thermo therapy (hot pack): Yes Ultrasound (thermal/non thermal): Yes For the Purpose of:: To decrease pain, To improve nutrient delivery to tissue, To increase oxygenation perfusion, To improve health of tissue, To decrease soft tissue restriction Please do not hesitate to contact me at [phone] by phone or if you have questions or concerns regarding this new plan of care! Sincerely, Edgar Dyer, PT, Cert MDT, OCS
--- NOTE | 2022-07-31 14:18 | HP.PT.NRP ---
WILLIAM WEI was seen in my office for initial evaluation on 01/23/22. The following Plan of Care was established for this patient: Initial Frequency: 1-2x /Week Initial Duration: 4 Weeks Patient/Client Instruction: Educate patient on: Condition, Plan of Care For the Purpose of:: To decrease pain, To decrease swelling/inflammation, To increase ROM, To increase tolerance to activity/condition/position, To improve ability of physical actions for home/community/work/leisure, To improve health of tissue, To decrease soft tissue restriction, To increase flexibility/ROM, To improve endurance, To improve balance, To prevent re-injury Therapeutic Exercise to Include: Strength training, Endurance training, Balance training, Active ROM For the Purpose of:: To decrease pain, To increase ROM, To improve muscle performance and motor function, To increase tolerance to activity/condition/position, To improve ability of physical actions for home/community/work/leisure, To improve health of tissue, To decrease soft tissue restriction, To increase flexibility/ROM, To improve endurance, To improve balance, To prevent re-injury, To improve tolerance to ADL's Manual Therapy Techniques to Include: Soft tissue mobilization For the Purpose of:: To decrease pain, To improve nutrient delivery to tissue, To increase oxygenation perfusion, To improve health of tissue, To decrease soft tissue restriction TENS: Yes IF ES: Yes Cryotherapy (ice pack, ice massage): Yes Thermo therapy (hot pack): Yes Ultrasound (thermal/non thermal): Yes For the Purpose of:: To decrease pain, To improve nutrient delivery to tissue, To increase oxygenation perfusion, To improve health of tissue, To decrease soft tissue restriction This patient was last seen in our office . Pertinent comments regarding their Physical therapy will appear below: Patient was seen for PT for glut medius tear for ,ROM ,strengthening and HEP At this point I will be discontinuing this patient from physical therapy. I would be happy to see this patient again in the future if found appropriate by the physician. Thank you! Edgar Dyer, PT, Cert MDT, OCS Balance/Gait/Functional tests - Balance/Special Test Scores Lower Extremity Functional Score: 35
== END 2022-05-28 19:00 | disposition home or self-care (01) ==
LOC: PT 10:00
PROVIDERS: PCP Family Medicine; Referring Provider Orthopaedic Surgery Sports Medicine; Visit Provider Orthopaedic Surgery Sports Medicine
DX: M76.892 Other specified enthesopathies of left lower limb, excluding foot (principal)
CPT/HCPCS: 97035; 97110; 97162

== ENCOUNTER → 2023-03-22 | Outpatient (CLI) | payer OTHER, SELFPAY | END | disposition home or self-care (01) | PROVIDERS: PCP Family Medicine; Visit Provider Nurse Practitioner Family | DX: U07.1 COVID-19 (principal); J06.9 Acute upper respiratory infection, unspecified | CPT/HCPCS: 87635 ==

== ENCOUNTER 2025-01-10 10:24 | Emergency (ER) | payer BC, SELFPAY ==
[2025-01-10 10:24] VITALS: BP 188/100; BP 198/104; PULSE 84; RESP 14; TEMP 36.8; O2SAT 98; BMI 24.3
--- NOTE | 2025-01-10 11:04 | ED.VIS.BACK ---
HPI History of Present Illness Chief Complaint: Back Informant: patient Onset/Context/Timing Onset: Today Context: Gradual Onset Injury: twisting and bending Timing: Continuous Quality: Sharp Current Severity: Moderate Maximum Severity: Moderate Worsened by: improves with Movement Relieved by: Nothing Associated Symptoms Associated Symptoms: Negative for Numbness, Tingling, Radiation to Right Leg, Radiation to Left Leg, Fever, Abdominal Pain, Dysuria, Unable to Ambulate, Unable to Transfer, Urinary Retention, Urinary Incontinence, Constipation or Fecal Incontinence Narrative Narrative: 54-year-old male no [facility] past medical history. He had a fall there today where he fell forward caught himself. Yesterday he did a lot of yard work lawn mowing pushing a mower, sitting on a tractor cutting grass weed whacking. He has had left lower back pain last night and today. Hard time getting up or sitting up. Worse with movement. No trouble urinating. No hematuria no dysuria. No any kidney stone. No abdominal pain. Pain is worse with movement. No prior back problems or back surgeries. No numbness or weakness in his lower extremities. No fever. Prior similar symptoms: No Recent Illness/Hospitalization: No PFSH PFS Medical History Headache COPD (chronic obstructive pulmonary disease) Back pain Varicose vein of leg Restless leg Microcytic anemia Home Medications ?Medication ?Instructions ?Recorded ?Last Taken ?Type naproxen 500 mg tablet 500 mg PO BID PRN #20 tabs 02/26/16 Unknown Rx melatonin 10 mg capsule 30 mg PO HS PRN Sleep 05/04/20 Unknown History multivitamin 1 tab PO DAILY 05/04/20 Unknown History triamcinolone acetonide 0.5 % 1 applic topical PRN PRN 05/04/20 Unknown History topical cream Rash/Topical Irritation metaxalone 800 mg tablet 800 mg PO TID 7 days #21 tabs 01/10/25 Unknown Rx Allergy/AdvReac Type Severity Reaction Status Date / Time No Known Allergies Allergy Verified 05/24/20 12:00 Family History Father Hypertension Ulcer Cancer skin Grandfather Colon cancer Surgical History History of tooth extraction History of lymph node biopsy History of right inguinal hernia repair Social History Smoking Status: Heavy Smoker (>10/day) ROS ROS ED ROS Narrative Denies recent illness. Left lower back pain. Constitutional Constitutional ED: Denies chills or fever(s) Eyes Eyes: Denies blurry vision ENT ENT ED: Denies ear pain Cardiovascular Cardiovascular: Denies chest pain Respiratory/Chest Respiratory/Chest: Denies dyspnea Gastrointestinal Gastrointestinal: Denies abdominal pain Genitourinary Genitourinary ED: Denies dysuria or hematuria Musculoskeletal Musculoskeletal: Reports back pain; Denies arthralgias, myalgias or neck pain Integumentary Denies abscess or Abrasions Neurologic Neurologic: Denies headache(s) Psychiatric Psychiatric: Denies anxiety or depression Endocrine Endocrinology: Denies cold intolerance Hematologic/Lymphatic Hematologic/Lymphatic: Denies easy bleeding or easy bruising Allergic/Immunologic Allergic/Immunologic ED: Denies mouth swelling, tongue swelling or urticaria EXAM Physical Exam Narrative Exam Narrative: Well-appearing 54-year-old male sitting upright in bed. Vital signs are stable afebrile. He does not look septic or toxic. H EENT exam pupils round react to light. Moist mucous membranes. Neck nontender. Lungs clear to auscultation bilaterally. Heart regular rhythm rate about 85 no murmur chest wall ribs nontender. Abdomen soft nontender. Back cervical, thoracic lumbar spine nontender. There is no signs of trauma. He has tenderness over the left paralumbar soft tissue. There is no ecchymosis or bruising. No redness or warmth. Right side is nontender. Moving all 4 extremities. Normal strength. Nontender no edema. Normal range of motion. Neurologically is awake alert. No focal motor deficits. No cauda equina. Const Vital Signs: 01/10/25 10:24 01/10/25 10:24 Temperature 98.3 F Temperature Source Temporal Pulse Rate 84 Respiratory Rate 14 Blood Pressure 188/100 H 198/104 H Blood Pressure Mean 129 135 Pulse Ox 98 Oxygen Delivery Method Room Air Positive well developed; Negative for cachectic, contractures or unkempt General Appearance ED: well developed and NAD; Negative for unkempt, cachectic, contractures or pallor Nutritional Appearance: Negative for cachectic HEENT Reports moist mucous membranes Negative for trauma or tenderness Eyes PERRL and EOMs intact bilaterally Neck no lymphadenopathy, supple and no JVD Resp normal respiratory effort and clear to auscultation bilaterally Cardio regular rate, regular rhythm, S1 normal heart sound, S2 normal heart sound and no murmurs GI normal to inspection, nondistended, normoactive bowel sounds, soft to palpation, non-tender, non-distended and no masses Palpation: Negative for tender or guarding Back/Spine normal to inspection and no thoracic nor lumbar tenderness Back/Spine Narrative: Paralumbar soft tissue tenderness on the left. Consistent with muscle strain and spasm. No discoloration. No redness or warmth. No bruising. No bony tenderness. General Back: Negative for CVA tenderness Cervical Spine: Negative for cervical spine tenderness Thoracic Spine / Upper Back: Negative for paraspinal muscle tenderness Lumbar Spine / Lower Back: straight leg raise negative bilaterally Extremity normal to inspection and no clubbing, cyanosis or edema Neuro oriented x3 and no sensory deficits noted Motor Exam: strength 5/5 throughout Psych mental status grossly normal Appearance: Negative for unkempt Skin no rashes or lesions noted and no wounds General Skin Exam: Negative for jaundice or pallor Lesions: No lesion noted Rashes: No rashes noted Trauma: Negative for abrasion or puncture Wounds: Negative for wounds noted Image ED - Body Diagram Man:  1. Left lower paralumbar soft tissue tenderness. No spinal tenderness. MDM MDM MDM Narrative Medical decision making narrative: 54-year-old male strained his lower back now and back spasms. We treat with IM Toradol and morphine. Skelaxin at home 800 3 times daily for a week. Ibuprofen and Tylenol. Hot shower, warm bath and massage. Off work next several days. History & Record Review Discussion w/independent historian: Patient Additional record(s) reviewed:: Prior inpatient record, Prior outpatient record, Prior ED visit and Prior labs Discharge Plan Triage Chief Complaint: Back ED Provider: Jose Najera Dx/Rx/DC Orders Clinical Impression: Back strain, Back spasm Instructions: ED Back Spasm, No Trauma, ED Back Sprain/Strain Prescriptions: New metaxalone 800 mg tablet 800 mg PO TID 7 Days Qty: 21 0RF No Action triamcinolone acetonide 0.5 % cream 1 applic TOPICAL PRN PRN (Reason: Rash/Topical Irritation) Patient Comments: APPLY CREAM TOPICALLY TO THE AFFECTED AREA DAILY multivitamin Tablet 1 tab PO DAILY melatonin 10 mg capsule 30 mg PO HS PRN (Reason: Sleep) naproxen 500 MG tablet 500 mg PO BID PRN Qty: 20 0RF Primary Care Provider: Dom Rice Referrals: Dom Rice, [Primary Care Provider] - 3-5 Days if not improving Activity Restrictions/Additional Instructions: Hot shower, warm bath, massage, hot tub. Motrin or ibuprofen 6 to 800 mg 3 times a day. For pain and inflammation. Tylenol in between as needed. The muscle relaxant Skelaxin 1 pill 3 times a day for the next 7 days. It will take about 3 days to 4 days it will start kicking in and you will notice a significant improvement. It does not work after just 1 pill. Follow-up with your doctor if not improving. Print Language: Cook Islander Disposition Disposition: Home, Self Care
--- OUTSIDE RECORDS SUMMARY | 2025-01-10 11:22 | XMS RPT_ITS | CCD ---
Author Organization [facility] Inform ion Partnership [facility] Care Team Providers Care Technical Mgr Name Role Phone Noah Agosto PA-C Unavailable [phone] Sung Ellis Referring Unavailable Sung Ellis Attending Unavailable Dom Rice Primary Care Unavailable Zandra Newton Attending Unavailable Dom Rice Primary Care Unavailable Medications Current Medications Medication Drug Class(es) Dates Sig (Normalized) Sig (Original) melatonin 10 mg oral capsule (1 source) Start: 05-04-2020 take 30 mg by mouth at bedtime Melatonin Active 30 MG PO BEDTIME May 04, 2020 1:00am Multivitamin preparation (1 source) Start: 05-04-2020 take 1 tablet by mouth once daily Multivitamin Active 1 TABLET PO DAILY May 04, 2020 1:00am nabumetone 500 mg oral tablet (1 source) Nonsteroidal Anti-inflammatory Drug Start: 08-23-2021 End: 11-21-2021 take 1 tablet by mouth twice daily NABUMETONE 500 MG TABS Take 1 tablet by mouth twice a day nabumetone [id number] Noah Agosto PA-C naproxen 500 mg oral tablet (1 source) Nonsteroidal Anti-inflammatory Drug Start: 02-26-2016 take 500 mg by mouth twice daily as needed Naproxen Active 500 MG PO TWICE DAILY NEEDED February 26, 2016 12:00am triamcinolone acetonide 5 mg/ml topical cream (1 source) Corticosteroid Start: 05-04-2020 Triamcinolone Acetonide Active 1 APPLIC TOPICAL NEEDED May 04, 2020 1:00am Completed/Discontinued Medications Medication Drug Class(es) Dates Sig (Normalized) Sig (Original) acetaminophen 325 mg / oxyCODONE hydrochloride 5 mg oral tablet (1 source) Opioid Agonist PERCOCET 5-325 M G TABS one tablet as needed oxycodone-acetamino phen [id number] Palmira Peña (1 source) Start: 08-23-2021 Medrol Take by mouth as directed Take medication as directed Casey Agosto PA-C penicillin v potassium 500 mg oral tablet (1 source) Start: 02-26-2016 End: 05-04-2020 take 500 mg by mouth four times daily Penicillin V Potassium Discontinued 500 MG PO 4 TIMES DAILY 40 February 26, 2016 12:00am May 04, 2020 9:46am Problems Active Problems Problem Classification Problem Date Documented Da te Episodic/Chronic Joint disorders and dislocations; trauma-related (1 source) Other articular cartilage disorders, left hip; Translations: [Articular cartilage disorder, pelvic region and thigh] Onset: 10-19-2020 10-19-2020 Chronic Other non-traumatic joint disorders (1 source) Disorder of hip joint; Translations: [Other specified joint disorders, right hip] Onset: 08-23-2021 08-23-2021 Episodic Residual codes; unclassified (1 source) Harmful pattern of use of nicotine; Translations: [Tobacco use] Onset: 06-01-2021 06-01-2021 Episodic Viral infection (1 source) COVID-19; Translations: [COVID-19] Onset: 03-27-2023 Past or Other Problems Problem Classification Problem Date Documented Date Episodic/Chronic Other connective tissue disease (1 source) Other specified enthesopathies of left lower limb, excluding foot; Translations: [Other specified enthesopathies of left lower limb, excluding foot] Onset: 08-03-2022 Episodic Other non-traumatic joint disorders (1 source) Other specified joint disorders, left hip; Translations: [Other specified disorders of joint, pelvic region and thigh] Onset: 10-19-2020 10-19-2020 Episodic Unclassified (1 source) Problem Results Test Name Value Interpretation Reference Range Facil ity M100.019on 03-23-2023 M100.019 SENT TO [facility] 03-22-23 2207PM SARS-CoV-2 (COVID 19 PCR) Positive A SARS-CoV-2 (COVID 19) Normal [facility] Comment on above: Performed By: #### M 100.019 #### [facility] [address] [place], [address] Clinical Summary: [place] still 08-23-[address] [facility] OP Visit Invalid Interpretation Code [facility] Work Phone: Vital Signs Date Time Vital Sign Value Performing Clinician Facility NEGATED: Highlighted [id number] 11:20-0500 Body height 180.34 cm [facility] Work Phone: NEGATED: Highlighted [id number] 11:20-0500 Body height 180 cm [facility] Work Phone: NEGATED: Highlighted [id number] 11:20-0500 Body mass index (BMI) [Ratio] 24.08 kg/m2 [facility] Work Phone: NEGATED: Highlighted [id number] 11:20-0500 Body temperature 98 [degF] [facility] Work Phone: NEGATED: Highlighted [id number] 11:20-0500 Body temperature 98.06 [degF] [facility] Work Phone: NEGATED: Highlighted [id number] 11:20-0500 Body weight 78.02 kg [facility] Work Phone: NEGATED: Highlighted [id number] 11:20-0500 Body weight 78 kg [facility] Work Phone: Encounters Encounter Date Encounter Type Care Provider Facility Start: 03-22-2023 End: 03-22-2023 ambulatory Zandra Newton Facility:[facility] Start: 05-28-2022 End: 05-28-2022 ambulatory Sung Ellis Facility:[facility] Start: 10-18-2021 End: 10-18-2021 Discharged Recurring [facility] Therapy Procedures Date Procedure Procedure Detail Performing Clinician Start: 08-23-2021 End: 08-23-2021 BP scrn no perf at interval Noah Agosto PA-C Work Phone: Start: 08-23-2021 End: 08-23-2021 Calc BMI norm parameters Noah Agosto PA-C Work Phone: Start: 08-23-2021 End: 08-23-2021 Current tobacco non-user cad cap copd pv dm Noah Agosto PA-C Work Phone: Start: 08-23-2021 End: 08-23-2021 Docrev cur meds by susan clin Noah Agosto PA-C Work Phone: Start: 08-23-2021 End: 08-23-2021 Pain doc pos and plan Noah Schwartz Work Phone: Start: 08-23-2021 End: 08-23-2021 Patient encounter procedure Noah Agosto PA-C Work Phone: Start: 08-23-2021 End: 08-23-2021 Radex hip unilateral with pelvis 2-3 views Noah Agosto PA-C Work Phone: NEGATED: Highlighted rowStart: 08-23-2021 End: 08-23-2021 Documentation of current medications [facility] Plan of Treatment Date Care Activity Detail Author Start: 08-23-2021 End: 08-23-2021 Patient encounter procedure Appointment Pati [facility] Work Phone: Payers Date Payer Category Payer Self-pay [id number] 2016 Unknown [id number] Unknown [id number] Unknown 2092 [id number] Social History Date Type Detail Facility Start: 08-23-2021 End: 08-23-2021 Assertion Unknown if ever smoked [facility] Work Phone: Start: 05-24-2020 Cigarettes [facility] Work Phone: Start: 1970 Sex Assigned At Male [facility] Work Phone: Evaluation note Note Date & Type Note Facility Evaluation note There may be informa tion available, but it has not been provided by the sender. [facility] Work Phone: Evaluation note Note Date & Type Note Facility Evaluation note No assessment information availa ble [facility] Work Phone: Instructions Note Date & Type Note Facility Instructions Completed [facility] Work Phone: Chief Complaint Chief Complaint Description Start Date left hip post left hip scope with labral repair chondroplasty synovectomy femoroplasty and capsular closure on 06/01/2021 Preliminary chief co mplaint data, not yet signed by the author as of Advance Directives No Advanced Directives Records Found Advance Directive Response Recorded Date/ Time Living Will No May 24 20 1:01pm Power of Byproducts Operator No May 24, 2020 1:01pm Family History No Family History Records Found Relationship Condition Age at Onset Recorded Date/T barry father Hypertension Unknown Ulcerative lesion Unknown Malignant neoplasm Unknown grandfather Malignant neoplasm of colon Unknown Chief Complaint and Reason for Visit Chief Complaint L HIP JOINT DISORDER . LABRAL TEAR SX 06/01/21. PT T Summary Purpose Additional Source Comments Reason for Visit (unrecogniz ed section and content) Reason For Visit Description Postop - subsequent visit Preliminary reason f or visit data, not yet signed by the author as of left hip post left hip scope with labral repair chondroplasty synovectomy femoroplasty and capsular closure on 06/01/2021 Goals (unrecognized section and content) Goals may be documented in a n alternate section (unrecognized sect ion and content) No Status Records Found INFORMATION SOURCE (unrecogn ized section and content) DATE CREATED AUTHOR 03/29/2023 [facility] FOR RECORDS PERTAINING TO PATIENTS WHO ARE OR HAVE BEEN ENROLLED IN A CHEMICAL DEPENDENCY/SUBSTANCEABUSE PROGRAM, SOME INFORMATION MAY BE OMITTED. This clinical summary was aggregated from multiple sources. Caution should be exercised in using it in the provision of clinical care. This summary normalizes information from multiple sources, and as a consequence, information in this document may materially change the coding, format and clinical context of patient data. In addition, data may be omitted in some cases. CLINICAL DECISIONS SHOULD BE BASED ON THE PRIMARY CLINICAL RECORDS. [employer] provides no warranty or guarantee of the accuracy or completeness of information in this document.
[2025-01-10 11:41] VITALS: BP 177/99; PULSE 81; RESP 16; TEMP 36.7; O2SAT 99
== END 2025-01-10 11:41 | disposition home or self-care (01) ==
LOC: ED 11:11
PROVIDERS: Emergency Provider Emergency Medicine; PCP Family Medicine; Visit Provider Emergency Medicine
DX: S39.012A Strain of muscle, fascia and tendon of lower back, initial encounter (principal); M62.830 Muscle spasm of back; F17.200 Nicotine dependence, unspecified, uncomplicated; W19.XXXA Unspecified fall, initial encounter
CPT/HCPCS: 96372; 99282